=== PATIENT | male | born 1935 | race Caucasian/White ===

== ENCOUNTER 2018-04-24 16:41 | Observation (INO) | payer OTHER ==
[2018-04-24] MEDS ORDERED: NA CHLORIDE 0.9% 500 ML ONE ×2 (17:14→18:17)
[2018-04-24 17:39] LABS: Absolute Lymphocytes (CBC) 0.6 K/uL (0.7-4.9); Absolute Monocytes 0.5 K/uL (0.1-1.3); Absolute Neutrophil 5.2 K/uL (1.8-8.0); Basophils % 0.2 % (0-1.3); Eosinophils % 0.3 % (0-4.4); Hematocrit 47.1 % (39.6-49.0); Lymphocytes % 9.7 % (15.3-44.8); MCH 32.5 pg (27.0-35.0); MCV 93.6 fL (80-100); Monocytes % 8.5 % (3.3-12.3); RBC Red Blood Cell Count 5.03 M/uL (4.33-5.43)
[2018-04-24 17:42] LABS: BUN Blood Urea Nitrogen 18 mg/dL (7-18); Bicarbonate 27 mmol/L (21-32); Glucose Level 115 mg/dL (74-106); Magnesium 2.2 mg/dL (1.8-2.4); Potassium 4.2 mmol/L (3.5-5.1); Sodium Level 141 mmol/L (136-145); Troponin (Emerg Dept Use Only) < 0.02 ng/mL (0.0-0.045)
--- NOTE | 2018-04-24 17:52 | RAD REPORT ---
EXAM DESCRIPTION: Rick Single View04/24/2018 5:33 pm CLINICAL HISTORY: Chest pain COMPARISON: 2008 FINDINGS: The lungs appear clear of acute infiltrate. The heart is normal size A moderate hiatal hernia is present IMPRESSION: No acute abnormalities displayed
--- NOTE | 2018-04-24 17:52 | RAD REPORT ---
EXAM DESCRIPTION: CT - Head Brain Wo Cont - 04/24/2018 5:36 pm CLINICAL HISTORY: confusion COMPARISON: none TECHNIQUE: Computed axial tomography of the head was obtained. IV contrast was not requested. All CT scans are performed using dose optimization technique as appropriate and may include automated exposure control or mA/KV adjustment according to patient size. FINDINGS: An intracranial bleed is not seen . The ventricles are normal in caliber. Calcified and ectatic cerebral arteries are present. No extra-axial fluid collection is noted. Mild to moderate low-density areas within periventricular, deep and subcortical white matter likely represent ischemic changes secondary to small vessel disease . Fluid within the sinuses/ mastoids is not seen. IMPRESSION: No acute intracranial abnormality is seen. If patient's symptoms persist MRI of the bra in would be recommended.
[2018-04-24 18:02] LABS: Urine Blood TRACE (NEG); Urine Glucose NEGATIVE (NEG); Urine Protein NEGATIVE (NEG); Urine Specific Gravity 1.025 (1.005-1.030); Urine pH 5.5 (5.0-7.0)
[2018-04-24 18:22] LABS: Urine Bacteria <20 /HPF (NONE SEEN); Urine Culture Reflex Order NOT NEEDED; Urine Mucus HEAVY /HPF (NONE SEEN); Urine RBC <5 /HPF (NONE SEEN)
--- NOTE | 2018-04-24 18:45 | EDPHYS ---
Physician Documentation [facility] Name: London Good Age: 83 yrs Sex: Male : 1935 Arrival Date: 04/24/2018 Time: 16:41 Bed 4 Private MD: Yancy Valdes F ED Physician Ryne Marie HPI: 04/24 17:57 This 83 yrs old Male presents to ER via Wheelchair with complaints of rn Weakness, Altered Mental Status. 17:58 The patient presents with confusion, decreased responsiveness. Onset: The rn symptoms/episode began/occurred this morning. Possible causes: unknown. Associated signs and symptoms: Pertinent positives: confusion, diarrhea, weakness, Pertinent negatives: ataxia, chest pain, combativeness, headache, seizure, shortness of breath. Current symptoms: In the emergency department the patient's symptoms have improved. The patient has experienced a previous episode. Family reports woke up around 0500, had diarrhea and urinated on himself, couldn't make it to bathroom, went back to bed, woke up around noon today, noticed when he woke up was acting a little funny, not speaking like he normally does, generalized weakness with trouble standing/walking, no trauma or fall. Patient denies pain. Has baseline alzheimers. NO new medication changes. . Historical: - Allergies: 17:22 Keflex; la1 - Home Meds: 17:33 Namzaric 28-10 mg oral CSpX 1 cap once daily [Active]; pravastatin 40 mg oral tab 1 tab la1 once daily [Active]; - PMHx: 17:22 Alzheimers; la1 - PSHx: 17:33 None; la1 - Immunization history:: Adult Immunizations up to date. - Social history:: Smoking status: unknown. - Ebola Screening: : No symptoms or risks identified at this time. - Family history:: not pertinent. - Hospitalizations: : No recent hospitalization is reported. ROS: 17:58 Constitutional: Negative for chills, and weight loss, Eyes: Negative for injury, pain, rn redness, and discharge, ENT: Negative for injury, pain, and discharge, Neck: Negative for injury, pain, and swelling, Cardiovascular: Negative for chest pain, palpitations, and edema, Respiratory: Negative for shortness of breath, cough, wheezing, and pleuritic chest pain, Abdomen/GI: Negative for abdominal pain, and constipation, MS/Extremity: Negative for injury and deformity, Skin: Negative for injury, rash, and discoloration, Neuro: Negative for headache, numbness, tingling, and seizure. Exam: 18:01 Constitutional: This is a well developed, well nourished patient who is awake, slow to rn respond but answers all questions and does not require repeated stimulation to stay awake Head/Face: Normocephalic, atraumatic. Eyes: Pupils equal round and reactive to light, extra-ocular motions intact. Lids and lashes normal. Conjunctiva and sclera are non-icteric and not injected. Cornea within normal limits. Periorbital areas with no swelling, redness, or edema. ENT: dry MM Neck: Trachea midline, no thyromegaly or masses palpated, and no cervical lymphadenopathy. Supple, full range of motion without nuchal rigidity, or vertebral point tenderness. No Meningismus. Cardiovascular: Regular rate and rhythm with a normal S1 and S2. No gallops, murmurs, or rubs. Normal PMI, no JVD. No pulse deficits. Respiratory: Lungs have equal breath sounds bilaterally, clear to auscultation and percussion. No rales, rhonchi or wheezes noted. No increased work of breathing, no retractions or nasal flaring. Abdomen/GI: Soft, non-tender, with normal bowel sounds. No distension or tympany. No guarding or rebound. No evidence of tenderness throughout. MS/ Extremity: Pulses equal, no cyanosis. Neurovascular intact. Full, normal range of motion. Equal circumference. Neuro: Awake, oriented to person, not time or place. Cranial nerves II-XII grossly intact. Motor strength 4/5 in all extremities. Sensory grossly intact. Vital Signs: 17:21 BP 103 / 65; Pulse 88; Resp 16; Temp 99.2; Pulse Ox 94% on R/A; la1 17:33 Weight 83.91 kg; la1 18:13 BP 110 / 65; Pulse 85; Resp 16; Pulse Ox 99% on R/A; la1 18:51 BP 113 / 72; Pulse 84; Resp 16; Pulse Ox 98% on R/A; la1 18:54 Temp 100.2(O); la1 19:54 BP 103 / 61; Pulse 75; Resp 20; Temp 99.5(O); Pulse Ox 96% on R/A; Pain 0/10; ao NIH Stroke Scale Scores: 17:22 NIHSS Score: 3 la1 MDM: 16:47 Patient medically screened. rn 18:41 Differential Diagnosis: electrolyte abnormality, intracranial bleed, pneumonia, sepsis, rn TIA, UTI, volume depletion. Data reviewed: vital signs, nurses notes, lab test result(s), EKG, radiologic studies, CT scan, plain films, and as a result, I will admit patient. Counseling: I had a detailed discussion with the patient and/or guardian regarding: the historical points, exam findings, and any diagnostic results supporting the discharge/admit diagnosis, lab results, radiology results, the need for further work-up and treatment in the hospital. Response to treatment: the patient's symptoms have mildly improved after treatment, and as a result, I will admit patient. Admission orders: after a detailed discussion of the patient's condition and case, the admit orders are written by me. ED course: Pt with some improvement with fluids, neg ct head, neg urine and cxr, low grade temp, still not back to baseline, will admit to Dr. Valdes for further eval, notified Dr. Dominguez \T\ 1842. May be delirium vs TIA vs dehydration. . 04/24 17:02 Order name: Basic Metabolic Panel; Complete Time: 17:56 rn 04/24 17:02 Order name: CBC with Diff; Complete Time: 17:56 rn 04/24 17:02 Order name: Magnesium; Complete Time: 17:56 rn 04/24 17:02 Order name: Troponin (emerg Dept Use Only); Complete Time: 17:56 rn 04/24 17:02 Order name: Blood Culture Adult (2) rn 04/24 17:02 Order name: Procalcitonin; Complete Time: 18:14 rn 04/24 17:02 Order name: CT Head Brain wo Cont; Complete Time: 17:56 rn 04/24 17:02 Order name: Lactate; Complete Time: 17:56 rn 04/24 17:02 Order name: Flu; Complete Time: 18:36 rn 04/24 17:02 Order name: Urine Microscopic Only; Complete Time: 18:36 rn 04/24 17:02 Order name: Urine Culture rn 04/24 17:04 Order name: XRAY Chest (1 view); Complete Time: 17:56 rn 04/24 17:22 Order name: Urine Dipstick--Ancillary (enter results); Complete Time: 18:05 eb 04/24 17:02 Order name: EKG; Complete Time: 17:02 rn 04/24 17:02 Order name: Cardiac monitoring; Complete Time: 17:25 rn 04/24 17:02 Order name: EKG - Nurse/Tech; Complete Time: 17:33 rn 04/24 17:02 Order name: IV Saline Lock; Complete Time: 17:25 rn 04/24 17:02 Order name: Labs collected and sent; Complete Time: 17:25 rn 04/24 17:02 Order name: NPO; Complete Time: 17:26 rn 04/24 17:02 Order name: O2 Per Protocol; Complete Time: 17:25 rn 04/24 17:02 Order name: O2 Sat Monitoring; Complete Time: 17:26 rn 04/24 17:02 Order name: Urine Dipstick-Ancillary (obtain specimen); Complete Time: 17:26 rn Administered Medications: 17:18 Drug: NS 0.9% 500 ml Route: IV; Rate: bolus; Site: right antecubital; ph 18:52 Follow up: IV Status: Completed infusion la1 18:13 Drug: NS 0.9% 500 ml Route: IV; Rate: bolus; Site: right antecubital; la1 18:52 Follow up: IV Status: Completed infusion la1 19:00 Drug: Tylenol 650 mg Route: PO; la1 Point of Care Testing: Blood Glucose: 17:21 Blood Glucose: 102 mg/dL; la1 Ranges: Critical Glucose Levels:Adult <50 mg/dl or >400 mg/dl <40 mg/dl or >180 mg/dl Disposition: 04/24/18 18:44 Hospitalization ordered by Yancy Valdes for Observation. Preliminary diagnosis are Altered mental status, unspecified, Dehydration, Weakness. - Bed requested for Telemetry/MedSurg (observation). - Status is Observation. ao - Condition is Stable. - Problem is new. - Symptoms have improved. UTI on Admission? No NIH Stroke Scale - NIH Stroke Score Date: 04/24/2018 Time: 17:22 Total Score = 3 1a. Level of Consciousness (LOC) - 0(Alert) 1b. Level of Consciousness (LOC) (Year \T\ Age) - 1(One) 1c. LOC Commands (Open \T\ Closes Eyes/Molder Pipe Covering) - 0(Both) 2. Best Gaze (Lateral Gaze Paresis) - 0(Normal) 3. Visual Field Loss - 0(No visual loss) 4. Facial Palsy - 0(Normal) 5a. Left Arm: Motor (10-second hold) - 0(No drift) 5b. Right Arm: Motor (10-second hold) - 0(No drift) 6a. Left Leg: Motor (5-second hold - always test supine) - 0(No drift) 6b. Right Leg: Motor (5-second hold - always test supine) - 0(No drift) 7. Limb Ataxia (finger/nose \T\ heel/ng - test with eyes open) - 0(Absent) 8. Sensory Loss (pinprick arms/legs/face) - 0(Normal) 9. Best Language: Aphasia (description/naming/reading) - 1(Mild to moderate aphasia) 10. Dysarthria (speech clarity - read or repeat words) - 1(Mild to Moderate) 11. Extinction and Inattention (visual/tactile/auditory/spatial/personal) - 0(No abnormality) Initials: la1 Signatures: Dispatcher [employer] EDMS Ryne Marie MD MD rn Calderon, Audri RN RN aa5 Jessica Poon Lee, RN RN la1 Lindsey Peace RN RN ph Ortiz, Alex RN RN ao Corrections: (The following items were deleted from the chart) 18:02 17:58 Constitutional: Negative for chills, and weight loss, Eyes: Negative for rn injury, pain, redness, and discharge, ENT: Negative for injury, pain, and discharge, Neck: Negative for injury, pain, and swelling, Cardiovascular: Negative for chest pain, palpitations, and edema, Respiratory: Negative for shortness of breath, cough, wheezing, and pleuritic chest pain, Abdomen/GI: Negative for abdominal pain, and constipation, MS/Extremity: Negative for injury and deformity, rn 18:44 18:43 04/24/2018 18:43 Discharged to Home. Impression: Altered mental status, rn unspecified; Dehydration; Weakness. Condition is Stable. Forms are Medication Reconciliation Form, Thank You Letter, Antibiotic Education, Prescription Opioid Use. Follow up: Yancy Valdes; When: As needed; Reason: Recheck today's complaints, Re-evaluation by your physician. Problem is new. Symptoms have improved. rn 19:37 18:44 Hospitalization Ordered by Yancy Valdes MD for Observation. Preliminary cc diagnosis is Altered mental status, unspecified; Dehydration; Weakness. Bed requested for Telemetry/MedSurg (observation). Status is Observation. Condition is Stable. Problem is new. Symptoms have improved. UTI on Admission? No. rn 19:38 19:37 04/24/2018 18:44 Hospitalization Ordered by Yancy Valdes MD for cc Observation. Preliminary diagnosis is Altered mental status, unspecified; Dehydration; Weakness. Bed requested for Telemetry/MedSurg (observation). Status is Observation. Condition is Stable. Problem is new. Symptoms have improved. UTI on Admission? No. cc 20:42 19:38 04/24/2018 18:44 Hospitalization Ordered by Yancy Valdes MD for ao Observation. Preliminary diagnosis is Altered mental status, unspecified; Dehydration; Weakness. Bed requested for Telemetry/MedSurg (observation). Status is Observation. Condition is Stable. Problem is new. Symptoms have improved. UTI on Admission? No. cc
--- NOTE | 2018-04-24 18:45 | ER ---
Nurse's Notes [facility] Name: London Good Age: 83 yrs Sex: Male : 1935 Arrival Date: 04/24/2018 Time: 16:41 Bed 4 Private MD: Yancy Valdes F Diagnosis: Altered mental status, unspecified;Dehydration;Weakness Presentation: 04/24 16:43 Presenting complaint: states: "he's been confused since around lunch time today". aa5 Pt's also reports 1 episode of diarrhea this morning. Pt currently A \\T\\ 0 x 1. Transition of care: patient was not received from another setting of care. Onset of symptoms was April 24, 2018. Care prior to arrival: None. 16:43 Acuity: BUD 2 aa5 16:43 Method Of Arrival: Wheelchair aa5 17:24 No acute neurological deficit is noted. Pre-hospital glucose is not applicable to this la1 patient. Risk Assessment: Do you want to hurt yourself or someone else? Patient reports no desire to harm self or others. Initial Sepsis Screen: Does the patient meet any 2 criteria? No. Patient's initial sepsis screen is negative. Does the patient have a suspected source of infection? No. Patient's initial sepsis screen is negative. Triage Assessment: 17:30 The onset of the patients symptoms was April 24, 2018 at 12:00. General: Appears in la1 no apparent distress. Behavior is calm, cooperative. 20:41 Neuro: Reports weakness. ao Stroke Activation: Symptom onset > 6 hours Physician: Stroke Attending; Name: ; Notified At: ; Arrived At: Physician: Chief Stroke Resident; Name: ; Notified At: ; Arrived At: Physician: Stroke Resident; Name: ; Notified At: ; Arrived At: Physician: ED Attending; Name: ; Notified At: ; Arrived At: Physician: ED Resident; Name: ; Notified At: ; Arrived At: Historical: - Allergies: 17:22 Keflex; la1 - Home Meds: 17:33 Namzaric 28-10 mg oral CSpX 1 cap once daily [Active]; pravastatin 40 mg oral tab 1 tab la1 once daily [Active]; - PMHx: 17:22 Alzheimers; la1 - PSHx: 17:33 None; la1 - Immunization history:: Adult Immunizations up to date. - Social history:: Smoking status: unknown. - Ebola Screening: : No symptoms or risks identified at this time. - Family history:: not pertinent. - Hospitalizations: : No recent hospitalization is reported. Screenin:24 Abuse screen: Denies threats or abuse. Nutritional screening: No deficits noted. la1 Tuberculosis screening: No symptoms or risk factors identified. Fall Risk No fall in past 12 months (0 pts). Secondary diagnosis (15 points) IV access (20 points). Ambulatory Aid- None/Bed Rest/Nurse Assist (0 pts). Gait- Weak (10 pts.). Mental Status- Overestimates/Forgets Limitations (15 pts.). Total Jerome Fall Scale indicates High Risk Score (45 or more points). Family Present and informed to notify staff if the need to leave the bedside. Assessment: 17:22 T-PA (Activase) Screening: Contraindications: Patient reports onset of signs and la1 symptoms of stroke greater than 6 hours ago: Yes. Pain: Denies pain. Neuro: Level of Consciousness is awake, alert, obeys commands, Oriented to person, Pt at baseline mental status per family except that his speech sounds more jumbled. Cardiovascular: Capillary refill < 3 seconds Patient's skin is warm and dry. Respiratory: Airway is patent Breath sounds are clear bilaterally. GI: No signs and/or symptoms were reported involving the gastrointestinal system. : No signs and/or symptoms were reported regarding the genitourinary system. Derm: Skin is dry, Skin is pink, warm \\T\\ dry. Skin temperature is warm. 17:30 The patient has not been NPO before screening. The patient is alert, and able to follow la1 commands. The patient does not exhibit slurred or garbled speech. The patient is exhibiting difficulty speaking. The patient is exhibiting difficulty understanding words. The patient is able to swallow own secretions with no drooling or need for suction. Patient tolerated one teaspoon of water. No drooling, immediate coughing, gurgling, or clearing of the throat was noted. The patient tolerated 90mL of water. No drooling, immediate coughing, gurgling, or clearing of the throat was noted. The patient passed the bedside swallow screening. Oral medications may be given as ordered. Contact Physician for further diet orders. Provider notified of bedside swallow screening results: Ryne Marie MD. 18:14 Reassessment: Patient appears in no apparent distress at this time. No changes from la1 previously documented assessment. Patient and/or family updated on plan of care and expected duration. Pain level reassessed. Patient states symptoms have improved. 19:15 General: Appears in no apparent distress. comfortable, Behavior is calm, cooperative. ao Pain: Denies pain. Neuro: Level of Consciousness is awake, alert, obeys commands, Oriented to person, Moves all extremities. Speech is normal. Cardiovascular: Capillary refill < 3 seconds Patient's skin is warm and dry. Respiratory: Airway is patent Respiratory effort is even, unlabored, Respiratory pattern is regular, symmetrical. GI: Abdomen is non-distended. : No signs and/or symptoms were reported regarding the genitourinary system. EENT: No signs and/or symptoms were reported regarding the EENT system. Derm: Skin is dry, Skin is pink, warm \\T\\ dry. Skin temperature is warm. Musculoskeletal: Circulation, motion, and sensation intact. Range of motion:. 19:49 Reassessment: Family reports patient unable to urinate with a desire to urinate after a ao cath was done. Patient's bladder was scanned with 151 Ml in the bladder. Family was notified not to worried since there is not much in the bladder. Vital Signs: 17:21 BP 103 / 65; Pulse 88; Resp 16; Temp 99.2; Pulse Ox 94% on R/A; la1 17:33 Weight 83.91 kg; la1 18:13 BP 110 / 65; Pulse 85; Resp 16; Pulse Ox 99% on R/A; la1 18:51 BP 113 / 72; Pulse 84; Resp 16; Pulse Ox 98% on R/A; la1 18:54 Temp 100.2(O); la1 19:54 BP 103 / 61; Pulse 75; Resp 20; Temp 99.5(O); Pulse Ox 96% on R/A; Pain 0/10; ao NIH Stroke Scale Scores: 17:22 NIHSS Score: 3 la1 ED Course: 16:41 Patient arrived in ED. as 16:42 Yancy Valdes MD is Private Physician. as 16:44 Arm band placed on Patient placed in an exam room, on a stretcher. aa5 16:47 Ryne Marie MD is Attending Physician. rn 16:57 Triage completed. aa5 16:59 Teddy Montero, RN is Primary Nurse. la1 17:24 Placed in gown. Bed in low position. Call light in reach. paper reel operator on. Pulse ox la1 on. NIBP on. 17:25 Inserted saline lock: 20 gauge in right antecubital area, using aseptic technique. la1 Blood collected. 17:31 X-ray completed. Portable x-ray completed in exam room. Patient tolerated procedure tm4 well. 17:32 XRAY Chest (1 view) In Process Unspecified. EDMS 17:36 CT Head Brain wo Cont In Process Unspecified. EDMS 18:43 Yancy Valdes MD is Referral Physician. rn 18:44 Yancy Valdes MD is Hospitalizing Provider. rn 20:27 No provider procedures requiring assistance completed. Patient admitted, IV remains in ao place. Administered Medications: 17:18 Drug: NS 0.9% 500 ml Route: IV; Rate: bolus; Site: right antecubital; ph 18:52 Follow up: IV Status: Completed infusion la1 18:13 Drug: NS 0.9% 500 ml Route: IV; Rate: bolus; Site: right antecubital; la1 18:52 Follow up: IV Status: Completed infusion la1 19:00 Drug: Tylenol 650 mg Route: PO; la1 Point of Care Testing: Blood Glucose: 17:21 Blood Glucose: 102 mg/dL; la1 Ranges: Outcome: 18:43 Discharge ordered by MD. rn 18:44 Decision to Hospitalize by Provider. rn 20:34 Condition: stable ao 20:40 Admitted to Med/surg accompanied by tech, room 231, with chart, Report called to pili Sam RN 20:40 Instructed on the need for admit. 20:42 Patient left the ED. ao NIH Stroke Scale - NIH Stroke Score Date: 04/24/2018 Time: 17:22 Total Score = 3 1a. Level of Consciousness (LOC) - 0(Alert) 1b. Level of Consciousness (LOC) (Year \\T\\ Age) - 1(One) 1c. LOC Commands (Open \\T\\ Closes Eyes/Tin Dipper) - 0(Both) 2. Best Gaze (Lateral Gaze Paresis) - 0(Normal) 3. Visual Field Loss - 0(No visual loss) 4. Facial Palsy - 0(Normal) 5a. Left Arm: Motor (10-second hold) - 0(No drift) 5b. Right Arm: Motor (10-second hold) - 0(No drift) 6a. Left Leg: Motor (5-second hold - always test supine) - 0(No drift) 6b. Right Leg: Motor (5-second hold - always test supine) - 0(No drift) 7. Limb Ataxia (finger/nose \\T\\ heel/ng - test with eyes open) - 0(Absent) 8. Sensory Loss (pinprick arms/legs/face) - 0(Normal) 9. Best Language: Aphasia (description/naming/reading) - 1(Mild to moderate aphasia) 10. Dysarthria (speech clarity - read or repeat words) - 1(Mild to Moderate) 11. Extinction and Inattention (visual/tactile/auditory/spatial/personal) - 0(No abnormality) Initials: la1 Signatures: Dispatcher [employer] EDMS Olivia Robb tm4 Rossy Payne Roman, MD MD rn Calderon, Audri, RN RN [facility] Teddy Montero RN RN la1 Lindsey Peace RN RN Gordon Christianson, RN RN ao Corrections: (The following items were deleted from the chart) 1657 16:56 Presenting complaint: states: "he's been confused since around lunch [facility] time today". Pt's also reports 1 episode of diarrhea this morning. Pt currently A \\T\\ 0 x 1 [facility] 16:57 16:56 Transition of care: patient was not received from another setting of [facility] care. [facility] 16:57 16:56 Onset of symptoms was April 24, 2018 [place] [id number] 16:57 16:56 Care prior to arrival: None. [place] [id number] 16:57 16:56 Method Of Arrival: Wheelchair [place] [id number] 16:57 16:56 Acuity: BUD 2 [place] [id number] 18:51 18:14 Reassessment: Patient appears in no apparent distress at this time. No la1 changes from previously documented assessment. Patient and/or family updated on plan of care and expected duration. Pain level reassessed. Patient is alert, oriented x 3, equal unlabored respirations, skin warm/dry/pink. Patient states symptoms have improved. la1
[2018-04-24] MEDS ORDERED: ACETAMINOPHEN 325 MG TABLET ONE (19:03)
[2018-04-24 21:03] VITALS: BMI 27.2
[2018-04-24] MEDS ORDERED: ACETAMINOPHEN 500 MG TAB PO PRN (23:36)
[2018-04-24] MEDS ORDERED: ONDANSETRON 4 MG/2 ML VIAL IV PRN (23:36)
[2018-04-24] MEDS: NA CHLORIDE 0.9% 1,000 ML IV SCH (23:59)
[2018-04-25 04:40] LABS: Absolute Lymphocytes (CBC) 0.8 K/uL (0.7-4.9); Absolute Monocytes 0.7 K/uL (0.1-1.3); Absolute Neutrophil 2.9 K/uL (1.8-8.0); Basophils % 0.5 % (0-1.3); Eosinophils % 0.9 % (0-4.4); Lymphocytes % 17.4 % (15.3-44.8); MCH 32.8 pg (27.0-35.0); MCV 93.5 fL (80-100); MPV 7.7 fL (7.6-11.3); RBC Red Blood Cell Count 4.38 M/uL (4.33-5.43)
[2018-04-25 04:57] LABS: Potassium 3.8 mmol/L (3.5-5.1)
[2018-04-25 05:42] LABS: Blood Morphology Comment NOT SEEN (NOT SEEN); Platelet Estimate ADEQ; Urine White Blood Cell Casts OK
[2018-04-25 09:16] VITALS: O2SAT 95
[2018-04-25] MEDS: NA CHLORIDE 0.9% 1,000 ML IV SCH ×2 (09:24→20:52)
--- NOTE | 2018-04-25 10:22 | EKG ---
Test Date: 2018-04-24 Test Time: 17:32:24 Cutter Finisher: MAGO MEASUREMENT RESULTS: Intervals: Rate: 95 MS: 156 QRSD: 84 QT: 350 QTc: 439 Crenshaw: P: 28 MS: 156 QRS: -59 T: 24 INTERPRETIVE STATEMENTS: Sinus rhythm with premature atrial complexes Left anterior fascicular block Minimal voltage criteria for LVH, may be normal variant Possible Lateral infarct, age undetermined Abnormal ECG Compared to ECG 08/30/2008 12:54:43 Atrial premature complex(es) now present Left anterior fascicular block now present Left ventricular hypertrophy now present Myocardial infarct finding now present Electronically Signed On 04-25-18 10:21:27 CDT by Yovani Middleton
[2018-04-25] MEDS ORDERED: INFLUENZA VACCINE (for 3y+) 0.5 ML DOSE IMVAC ONE (11:00)
[2018-04-25] MEDS ORDERED: PNEUMOCOCCAL VACCINE 0.5 ML IMVAC ONE (11:00)
[2018-04-25] MEDS ORDERED: CALCIUM GLUC 10% INJ 4.65 MEQ in NA CHLORIDE 0.9% 100 ML IV ONE (13:00)
[2018-04-25] MEDS: LOPERAMIDE HCL 2 MG CAPSULE PO PRN (20:49)
[2018-04-25] MEDS: MEMANTINE HCL PO SCH (20:58)
[2018-04-25] MEDS: DONEPEZIL HCL PO SCH (20:58)
[2018-04-25] MEDS ORDERED: ATORVASTATIN 10 MG TAB PO SCH (21:00)
--- NOTE | 2018-04-25 23:19 | HP ---
Date of Admission: 04/24/2018 History Of Present Illness: An 83-year-old male with baseline of mild Alzheimer's. He was noted by his and his daughter to be more confused on the day of his admission to the hospital, so they ca me and brought him to the emergency room. The patient on his workup was found to be volume depleted and dehydrated because the patient had 2 liquid bowel motions the day before. The patient himself at this time feels well. Has no abdominal pain, no fever, no chills, and his mental status is back to baseline as per his family. Review of Systems: Cardiovascular: No complaint. Respiratory: No complaint. Gastrointestinal: As above. Skeletomuscular: No complaints. ENT: No complaints. Neurological: No new complaint. Past Medical History: 1.Alzheimer's. 2.Hyperlipidemia. Social History: No smoking, alcohol, or drug abuse history. Family History: Noncontributory. Medications: Atorvastatin 10 mg p.o. daily, memantine hydrochloride and donepezil 28/10 mg p.o. ro y. Allergies: CEPHALEXIN. Physical Examination: Vital Signs: Blood pressure 120/60, pulse 60, temperature 97.8. Heart: Regular rate and rhythm. Chest: Clear to auscultation. Abdomen: Soft, benign, nontender. No rigidity. No rebound. Bowel sounds are normoactive. Extremities: No edema. No cyanosis. Peripheral pulses are felt. Neurological: Patient is alert. He knew he was in the hospital. Grossly intact. Laboratory Data: EKG showed normal sinus rhythm with left anterior fascicular block, lateral Q-waves . BUN 18, creatinine 1.40. Calcium 7.7. Urinalysis, white blood cells less than 5, negative nitrit e and esterase. CBC noted. Assessment/plan: Volume depletion, dehydration, altered mental status in a patient with baseline dem entia. This is likely secondary to his viral gastroenteritis with mild diarrhea. The patient has be en admitted, was put on IV fluids and he is feeling much better back to baseline on his mental status . His BUN this morning is 17 and creatinine 1.10. He had 2 loose bowel motions overnight. I think we will keep the patient on IV fluids for 1 more day and if he keeps doing well and his diarrhea stop s, we will go ahead and discharge him in the morning. Look orders for details. MFS/MODL Voice ID: [id number]
[2018-04-26] MEDS: LOPERAMIDE HCL 2 MG CAPSULE PO PRN (03:53)
[2018-04-26] MEDS: NA CHLORIDE 0.9% 1,000 ML IV SCH ×2 (03:53→15:36)
[2018-04-26] MEDS: MEMANTINE HCL PO SCH (09:00)
[2018-04-26] MEDS ORDERED: HOME MED 1 EA UNK (Pravastatin Sodium [Pravastatin Sodium] 40 MG) PO SCH (09:00)
[2018-04-26] MEDS: DONEPEZIL HCL PO SCH (09:00)
--- NOTE | 2018-04-26 10:15 | RAD REPORT ---
EXAM DESCRIPTION: MRI - Brain W/Wo Cont - 04/26/2018 10:06 am CLINICAL HISTORY: Speech difficulty, stroke-like symptoms, weakness, transient alteration of awarene ss COMPARISON: CT head April 24 TECHNIQUE: Sagittal and axial T1-weighted images were obtained. Axial PD/heavily T2-weighted and T2- FLAIR images were obtained along with axial DWI/ADC mapping sequences. Coronal heavily T2 weighted s equence obtained. Axial and coronal post-contrast T1-weighted images were also obtained. A 18 ml Mul tiHance contrast following utilized. FINDINGS: No intracranial hemorrhage, mass or acute infarction. There is no edema or shift of midli ne structures. No extra-axial fluid collections. Fitzgerald-matter/white matter junction is preserved. Sig nal voids are seen as a normal finding in the major intracranial vessels. Moderate atrophy changes ar e present. There is moderate chronic ischemic change in the cerebral white matter and left basal gang melinda. Chronic ischemic changes minimal in the brainstem. Ventricles are in proportion to volume loss. Post-contrast images show normal enhancement. No dural thickening. Mastoid air cells and paranasal sinuses are clear. No globe or orbital content acute abnormality. No sella or supra sella acute finding. IMPRESSION: No acute infarction. No hemorrhage, mass or acute intracranial finding. Moderate atrophy and chronic ischemic change.
--- NOTE | 2018-04-26 10:23 | RAD REPORT ---
EXAM DESCRIPTION: MRI - MRA Head Wo Cont - 04/26/2018 10:07 am CLINICAL HISTORY: Transient alteration of awareness, speech difficulty, weakness, stroke-like sympto ms COMPARISON: CT head April 24 TECHNIQUE: Axial and coronal 3D [id number] image acquisition was performed. 3D rotational images were generated with source and reconstruction images reviewed. On FINDINGS: Major venous sinuses are patent. From skullbase to the termination point the bilateral internal carotid arteries show no dissection, s ignificant stenosis or significant atherosclerotic change. Vertebral artery is very tortuous but show s no stenosis, dissection or significant atherosclerotic change. No significant atherosclerotic campos es of the anterior cerebral arteries. Technical factors result in limited visualization of the bilate ral middle and posterior cerebral artery distributions. IMPRESSION: No internal carotid artery stenosis, dissection or significant finding. Pronounced tortuosity of the basilar artery without stenosis. No significant anterior cerebral atherosclerotic change. Technical factors limit middle and posterior cerebral artery assessment.
--- NOTE | 2018-04-26 10:26 | RAD REPORT ---
EXAM DESCRIPTION: MRI - MRA Neck W/Wo Cont - 04/26/2018 10:06 am CLINICAL HISTORY: Stroke-like symptoms, speech difficulty, weakness COMPARISON: None. TECHNIQUE: Axial and coronal 3D [id number] image acquisition was performed. 3D rotational images were generated with source and reconstruction images reviewed. FINDINGS: Aortic arch is 3 vessel. No origin stenosis. No left vertebral artery origin stenosis. Rig ht vertebral artery origin is limited by small size and technical factors. Left vertebral artery is t he dominant vessel. No vertebral artery dissection or significant stenosis. No common carotid artery significant disease. Proximal internal carotid artery's are tortuous but clear of a stenosis or focal abnormality. More distally the internal carotid artery's also clear of any significant disease. IMPRESSION: Cervical vascular assessment shows no stenosis, dissection or significant atheroscleroti c change.
[2018-04-26 17:07] VITALS: BP 146/65
[2018-04-26 17:08] VITALS: TEMP 97.2
--- NOTE | 2018-04-27 06:33 | DS ---
Date of Discharge: 04/26/2018 History Of Present Illness: An 83-year-old male who was admitted to the hospital because of altered mental status when he looked to his that he was more confused than his baseline. The patient wa s evaluated in the emergency room and was found to have dehydration secondary to diarrhea, and he was admitted with altered mental status and dehydration. Past Medical History: As per the admit note. Social History: As per the admit note. Family History: As per the admit note. Medications: As per the admit note. Allergies: PER THE ADMIT NOTE. Physical Examination: As per the admit note. Diagnostic Data: As per the admit note. Hospital Course: The patient was admitted to the hospital. He was put on IV fluids and continued hi s home medications. The patient did well with hydration, and he was back to his normal mental status , alert and oriented today, and has no complaints, communicating well. His diarrhea was liquid stool s about 6 over a 24-hour period. However, today, he is feeling well. They are soft. They are not l iquid, and he had 2 bowel motions till now. He had no abdominal pain. He is feeling well at this ti me. Also, his cultures are no growth to date, and his Clostridium difficile toxin for his stools was negative. I think that the patient had viral gastroenteritis which is resolving. He is eating well , and his volume depletion has resolved. I think at this time, the patient is stable enough to be di scharged to continue his home medications. Encourage fluid intake until his diarrhea resolves, which is actually resolving now. To continue his home medications and to follow up with me on . Look discharge orders for details. MFS/MODL Voice ID: [id number] Report ID: [id number]
--- NOTE | 2018-04-27 14:50 | DS ---
Date of Discharge: 04/26/2018 Addendum: Also he had head and neck MRA and brain MRI, which was negative and no acute pathology. MFS/MODL Voice ID: [id number] Report ID: [id number]
== END 2018-04-26 16:54 | disposition home or self-care (01) ==
LOC: ER 16:41 → ERHOLD 18:45 → 2ND 20:27
PROVIDERS: ADMIT Internal Medicine; ATTEND Internal Medicine
DX: E86.0 Dehydration (principal); A08.4 Viral intestinal infection, unspecified; R41.82 Altered mental status, unspecified; G30.9 Alzheimer's disease, unspecified; F02.80 Dementia in other diseases classified elsewhere, unspecified severity, without behavioral disturbance, psychotic disturbance, mood disturbance, and anxiety; E78.5 Hyperlipidemia, unspecified
CPT/HCPCS: 36415; 70450; 70544; 70549; 70553; 71045; 80048 ×2; 82962; 83605; 83735; 84145; 84484; 85025 ×2; 87040 ×2; 87088; 87493; 87804 ×2; 93005; 96360; 96361; 99285; A9577; G0378 ×2; J0610; J7030 ×4; 81003; 81015; 87086